=== PATIENT | female | born 1960 | race Caucasian/White ===

== ENCOUNTER 2019-05-02 18:41 | Emergency (ER) | payer BC ==
[2019-05-02] MEDS ORDERED: HYDROmorphone 1 MG/ML SYRINGE IVP STA (19:30)
[2019-05-02] MEDS ORDERED: KETOROLAC 30 MG/ML VIAL IVP STA (19:30)
[2019-05-02] MEDS ORDERED: SODIUM CHLORIDE 0.9% 1,000 ML IV ONE (19:31)
--- NOTE | 2019-05-02 19:34 | ED Physician Documentation ---
PD HPI ABD PAIN - Stated complaint Stated Complaint: RT SIDE ADB PX, NAUSEA, CONSTIPATION X2DAYS - Chief complaint Chief Complaint: Abd Pain - History obtained from History obtained from: Patient - History of Present Illness Timing - onset: How many hours ago (2) Timing - duration: Hours Timing - details: Gradual onset, Still present - Additional information Additional information: Patient comes emergency department complaining of right-sided abdominal pain that started about 2 hours ago. Patient states she has been constipated and has been taking MiraLAX and glycerin suppositories for this. She states that after she took a glycerin suppository this afternoon, she began to notice a pain in her right abdomen. She states it was located in the middle of the right abdomen, but seemed to spread and become more intense in both the right upper and lower quadrants. Patient states that she has had slight nausea today, but a normal appetite. No dysuria. 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 No history of kidney stones. No history of gallstones. She states that she has her gallbladder, appendix, and reproductive organs in place. Patient denies any fevers or chills. No sick contacts. She states she is ot herwise healthy. She denies any chest pain, shortness of breath, or sore throat.Patient states the pain has stayed about the same, and is helped by her holding still and keeping her knees up. She states movement makes the pain worse.She categorizes the pain as sharp and pain about a 7 out of 10. She states that it radiates to her back. Review of Systems Ten Systems: 10 systems reviewed and negative Constitutional: reports: Reviewed and negative Eyes: reports: Reviewed and negative Ears: reports: Reviewed and negative Nose: reports: Reviewed and negative Throat: reports: Reviewed and negative Cardiac: reports: Reviewed and negative Respiratory: reports: Reviewed and negative GI: reports: Abdominal Pain, Nausea, Constipation : reports: Reviewed and negative Skin: reports: Reviewed and negative Musculoskeletal: reports: Reviewed and negative Neurologic: reports: Reviewed and negative Psychiatric: reports: Reviewed and negative Endocrine: reports: Reviewed and negative Immunocompromised: reports: Reviewed and negative PD PAST MEDICAL HISTORY - Past Medical History Past Medical History: Yes : Other - Past Surgical History Past Surgical History: No - Present Medications Home Medications: Ambulatory Orders Medication Instructions Recorded Confirmed HYDROcod/ACET 5/325 Prepack 4 1 bottle PO ONCE 4 Days #1 bottle 05/02/19 [NORCO 5/325 Prepack 4] Magnesium Citrate 150 ml PO BID 2 Days #2 solution 05/02/19 - Allergies Allergies/Adverse Reactions: Allergies Allergy/AdvReac Type Severity Reaction Status Date / Time No Known Drug Allergies Allergy Verified 05/02/19 18:48 - Social History Does the pt smoke?: No Smoking Status: Never smoker Does the pt drink ETOH?: No Does the pt have substance abuse?: No - Immunizations Immunizations are current?: No - POLST Patient has POLST: No PD ED PE NORMAL - Vitals Vital signs reviewed: Yes - General General: Alert and oriented X 3, No acute distress - HEENT HEENT: PERRL - Neck Neck: Supple, no meningeal sign - Cardiac Cardiac: RRR, No murmur - Respiratory Respiratory: Clear bilaterally - Abdomen Abdomen: Soft, Non distended, Other (Patient has significant tenderness with voluntary guarding over her right upper and lower quadrants. No flank tenderness.) - Back Back: No CVA TTP - Derm Derm: Normal color, Warm and dry, No rash - Extremities Extremities: No deformity - Neuro Neuro: Alert and oriented X 3 - Psych Psych: Normal mood, Normal affect Results - Vitals Vitals: Vital Signs - 24 hr 05/02/19 05/02/19 05/02/19 18:48 19:18 21:00 Temperature 36.5 C Heart Rate 62 76 65 Respiratory 20 18 16 Rate Blood Pressure 123/71 121/82 H 124/82 H O2 Saturation 100 98 94 05/02/19 21:51 Temperature Heart Rate 60 Respiratory 18 Rate Blood Pressure 117/84 H O2 Saturation 95 Oxygen O2 Source Room air - Labs Labs: Laboratory Tests 05/02/19 05/02/19 05/02/19 19:20 19:20 19:20 WBC 3.5 L RBC 4.09 L Hgb 12.6 Hct 37.6 MCV 91.9 MCH 30.8 MCHC 33.5 RDW 11.8 L Plt Count 252 MPV 9.2 Neut # (Auto) 1.7 Lymph # (Auto) 1.3 L Maverick # (Auto) 0.3 Eos # (Auto) 0.1 Baso # (Auto) 0.0 Absolute Nucleated RBC 0.00 Nucleated RBC % 0.0 PT 13.1 H INR 1.2 Sodium 137 Potassium 3.4 L Chloride 100 L Carbon Dioxide 27 Anion Gap 10.0 BUN 15 Creatinine 0.9 Estimated GFR (MDRD) 64 L Glucose 133 H Calcium 9.2 Total Bilirubin 0.3 AST 23 ALT 21 Alkaline Phosphatase 57 Total Protein 7.2 Albumin 4.7 Globulin 2.5 Albumin/Globulin Ratio 1.9 Lipase 27 Urine Color Urine Clarity Urine pH Ur Specific [place] Urine Protein Urine Glucose (UA) Urine Ketones Urine Occult Blood Urine Nitrite Urine Bilirubin Urine Urobilinogen Ur Leukocyte Esterase Urine RBC Urine WBC Ur Squamous Epith Cells Urine Bacteria Ur Microscopic Review Urine Culture Comments 05/02/19 20:50 WBC RBC Hgb Hct MCV MCH MCHC RDW Plt Count MPV Neut # (Auto) Lymph # (Auto) Ma[place] # (Auto) Eos # (Auto) Baso # (Auto) Absolute Nucleated RBC Nucleated RBC % PT INR Sodium Potassium Chloride Carbon Dioxide Anion Gap BUN Creatinine Estimated GFR (MDRD) Glucose Calcium Total Bilirubin AST ALT Alkaline Phosphatase Total Protein Albumin Globulin Albumin/Globulin Ratio Lipase Urine Color YELLOW Urine Clarity CLEAR Urine pH 6.0 Ur Specific [place] 1.015 Urine Protein NEGATIVE Urine Glucose (UA) NEGATIVE Urine Ketones NEGATIVE Urine Occult Blood SMALL H Urine Nitrite NEGATIVE Urine Bilirubin NEGATIVE Urine Urobilinogen 0.2 (NORMAL) Ur Leukocyte Esterase NEGATIVE Urine RBC 6-10 H Urine WBC 0-3 Ur Squamous Epith Cells FEW Squamous Urine Bacteria Few Ur Microscopic Review INDICATED Urine Culture Comments NOT INDICATED - Rads (name of study) CT abd/pelvis Radiology: Final report received, Discussed with rads (Final radiology impression: 1. No definite findings to explain clinical symptoms. The appendix is not visualized on this study, yet there are no indirect signs to suggest underlying appendicitis.Additional notations: There is a moderately large amount of stool within the colon. There is no distention of the small bowel. No inflammatory changes at the colon.) PD MEDICAL DECISION MAKING - ED course Complexity details: reviewed old records, reviewed results, re-evaluated patient, considered differential, d/w patient, d/w family ED course: Patient was worked up with labs, urinalysis, and CT scan of the abdomen and pelvis, and treated with IV fluids, Toradol, and Dilaudid. Patient was found to be feeling much better on reevaluation. Her labs and urinalysis were unre markable. Her CT scan of the abdomen and pelvis showed only a large amount of stool in the colon, but was otherwise unremarkable for acute or serious pathology. I have discussed with pt and her the findings on work-up. We have discussed treatment of the constipation with magnesium citrate from above and enema from beneath. The patient has requested pain medication for at home and I have explained to her that any narcotic will potentially worsen her constipation. We have discussed that I can give her a small amount for at home, but that she should use it only if absolutely necessary and try to relieve the constipation instead. We discussed home management of the symptoms, as well as usual indications for return. Patient did just before discharge she becomes quite nauseated and vomited. She was given a dose of Zofran and was given prepacks for both Zofran and Vicodin from the emergency department.The patient and live primarily in [place], and patient states that she can see her primary care physician in [place] and follow-up when she returns home at the end of the weekend. Departure - Departure Disposition: 01 Home, Self Care Clinical Impression: Abdominal pain Qualifiers: Abdominal location: right lower quadrant Qualified Code(s): R10.31 - Right lower quadrant pain Constipation Qualifiers: Constipation type: unspecified constipation type Qualified Code(s): K59.00 - Constipation, unspecified Condition: Fair Instructions: ED Abdominal Pain Unkn Cause, ED Constipation Prescriptions: HYDROcod/ACET 5/325 Prepack 4 [NORCO 5/325 Prepack 4] 1 bottle PO ONCE 4 Days #1 bottle Magnesium Citrate 150 ml PO BID 2 Days #2 solution Comments: Your CT scan shows quite a bit of stool in your colon, but no evidence of appendicitis, gallstones, kidney stone, or reproductive organ pathology.Most likely, the pain you are having is from the stool in your colon. Please take the magnesium citrate, as directed, to help clear this out. When you take a laxative, it can cause cramping and spasm in the colon, and this can cause some degree of discomfort. However, medication is generally effective in helping to clear the stool. Please follow-up with your primary care physician regarding your symptoms if they persist beyond the weekend. Discharge Date/Time: 05/02/19 22:31
[2019-05-02 19:38] LABS: BASOPHILS % (AUTO) 1.2 %; EOSINOPHILS # (AUTO) 0.1 10^3/uL (0.0-0.7); EOSINOPHILS % (AUTO) 3.8 %; HGB - HEMOGLOBIN 12.6 g/dL (12.0-16.0); LYMPHOCYTES # (AUTO) 1.3 10^3/uL (1.5-3.5); LYMPHOCYTES % (AUTO) 37.9 %; MEAN CORPUSCULAR HEMOGLOBIN 30.8 pg (27.0-31.0); MEAN CORPUSCULAR HGB CONC 33.5 g/dL (32.0-36.0); MEAN CORPUSCULAR VOLUME 91.9 fL (81.0-99.0); MEAN PLATELET VOLUME 9.2 fL (7.9-10.8); MONOCYTES # (AUTO) 0.3 10^3/uL (0.0-1.0); NEUTROPHILS # (AUTO) 1.7 10^3/uL (1.5-6.6); NEUTROPHILS % (AUTO) 47.8 %; PLT - PLATELET COUNT 252 10^3/uL (130-450); RED BLOOD COUNT 4.09 10^6/uL (4.20-5.40); RED CELL DISTRIBUTION WIDTH 11.8 % (12.0-15.0); WHITE BLOOD COUNT 3.5 x10^3/uL (4.8-10.8)
[2019-05-02 19:47] LABS: ALBUMIN 4.7 g/dL (3.2-5.5); ALBUMIN/GLOBULIN RATIO 1.9 (1.0-2.2); BILIRUBIN,TOTAL 0.3 mg/dL (0.2-1.0); CALCIUM 9.2 mg/dL (8.5-10.3); CREATININE 0.9 mg/dL (0.4-1.0); TOTAL PROTEIN 7.2 g/dL (6.7-8.2)
[2019-05-02 19:50] LABS: INR 1.2 (0.8-1.2); PT - PROTHROMBIN TIME 13.1 secs (9.9-12.6)
[2019-05-02] MEDS ORDERED: IOVERSOL 320 100 ML VIAL IVP ONE ×2 (20:08→20:49)
[2019-05-02 21:01] LABS: BILIRUBIN,URINE NEGATIVE (NEGATIVE); GLUCOSE, URINE (UA) NEGATIVE (NEGATIVE); KETONES,URINE (UA) NEGATIVE (NEGATIVE); LEUKOCYTE ESTERASE, URINE NEGATIVE (NEGATIVE); NITRITE,URINE NEGATIVE (NEGATIVE); OCCULT BLOOD,URINE SMALL (NEGATIVE); PROTEIN,URINE NEGATIVE (NEGATIVE); UROBILINOGEN,URINE 0.2 (NORMAL) E.U./dL (NORMAL)
--- NOTE | 2019-05-02 21:06 | CT Report ---
Reason: R abd pain Procedure Date: 05/02/2019 Accession Number: [id number] / [id number] Procedure: CT - Abdomen/Pelvis W CPT Code: Final Report FULL RESULT: EXAM: CT ABDOMEN AND PELVIS EXAM DATE: 05/02/2019 08:47 PM. CLINICAL HISTORY: R abd pain. COMPARISONS: None. TECHNIQUE: Routine helical CT imaging was performed through the abdomen and pelvis. IV contrast: OPTIRAY 320. Enteric contrast: No. Reconstructions: Coronal and sagittal. In accordance with CT protocol optimization, one or more of the following dose reduction techniques were utilized for this exam: automated exposure control, adjustment of mA and/or KV based on patient size, or use of iterative reconstructive technique. FINDINGS: Lung Bases: Unremarkable. Liver: Normal. No masses. Gallbladder/Bile Ducts: Small gallbladder polyp. No ductal dilatation. Spleen: Normal. Pancreas: Normal. Adrenal Glands: Normal. Kidneys: Normal. No masses or hydronephrosis. Peritoneal Cavity/Bowel: Normal. No free fluid, free air or adenopathy. No masses or acute inflammatory process. The appendix is not clearly visualized, however, there are no inflammatory changes in the region of the cecum and no extraluminal fluid collections. There are no inflammatory changes of the colon. There is a moderately large amount of stool within the colon. There is no distention of the small bowel. Pelvic Organs: Normal. The bladder and visualized pelvic organs are within normal limits. Vasculature: No aneurysms or other significant abnormality. Bones: No significant abnormality. Other: None. IMPRESSION: 1. No definite findings to explain conical symptoms. The appendix is not visualized on this study yet there are no indirect signs to suggest underlying appendicitis. If clinical suspicion is high this study could be repeated in 12 hours after copious amounts of oral contrast. 2. Very small gallbladder polyp. [facility]
[2019-05-02 21:14] LABS: CLARITY,URINE CLEAR (CLEAR)
[2019-05-02 21:24] LABS: BACTERIA,URINE Few /HPF (None Seen); SQUAMOUS EPITHELIAL CELL,UR FEW Squamous (<= Few)
[2019-05-02 21:51] VITALS: BP 117/84
[2019-05-02] MEDS ORDERED: ONDANSETRON 4 MG/2 ML VIAL IVP STA (22:16)
[2019-05-02] MEDS ORDERED: ONDANSETRON ODT 4 MG Prepack 2 TL PRN (22:16)
[2019-05-02] MEDS ORDERED: HYDROcod/ACET 5/325 Prepack 4 PO STA (22:16)
== END 2019-05-02 22:31 | disposition home or self-care (01) ==
LOC: ED 18:41
DX: R10.31 Right lower quadrant pain (principal); K59.00 Constipation, unspecified
CPT/HCPCS: 36415; 74177; 80053; 81001; 83690; 85025; 85610; 96361; 96374; 96375; 99284; J1170; Q9967; 81003; 87086